=== PATIENT | male | born 1965 | race Caucasian/White ===

== ENCOUNTER 2023-04-03 09:17 | Outpatient (CLI) | payer BC, SELFPAY ==
--- NOTE | 2023-04-03 09:15 | CRLHL7_ITS ---
For Patients: As a result of the Century Cures Act, medical imaging exams and procedure reports are released immediately into your electronic medical record. You may view this report before your referring provider. If you have questions, please contact your health care provider. Indication: Left wrist pain Procedure : Informed consent was obtained. The site was marked. Time-out was performed. The skin of the left wrist was cleansed with ChloraPrep. A sterile drape was placed. 2 cc of 1 percent lidocaine was administered for superficial anesthesia. Subsequently a 25 gauge needle was introduced into the left wrist radiocarpal joint under intermittent fluoroscopic guidance. Injection of 0.5 cc nonionic Omnipaque 240 contrast confirmed intra-articular location. Subsequently 3 cc of dilute gadolinium was injected. The needle was removed and hemostasis achieved with direct pressure. A dressing was placed. The patient tolerated the procedure well without immediate complication and was immediately sent to MRI for imaging. Total fluoroscopy time 78 seconds. Impression: Successful fluoroscopically guided left wrist arthrogram for MRI. Dictated by Roger Raya MD @ 04/03/2023 12:16:46 PM (Electronically Signed)
--- NOTE | 2023-04-03 10:15 | MR_ITS ---
[address] [address] Phone:?[phone] Fax:?[phone] Referring Physician Information: Paul Martinez M.D. [id number] [facility] [address] Phone:?[phone] Fax:?[phone] Patient:?Ravi Edmondson D.O.B:?1965 Sex:?Male Phone:?[phone] [facility] MRN:?[id number] Exam Date:?04/03/2023 EXAM:? MR ARTHROGRAM OF THE LEFT WRIST CLINICAL INFORMATION: The patient is a 58-year-old with left wrist pain. Evaluate TFCC. PRIOR SURGERY: None reported. COMPARISON STUDIES: Comparison is made to prior radiographs dated 03/20/2023. TECHNICAL INFORMATION: This study was performed following the intra-articular administration of a dilute gadolinium solution at [facility] (please see separate report). Imaging was produced on a high-field, 1.5 Mckenzie MR scanner. Coronal gradient echo imaging was produced in addition to coronal fat- suppressed T1 and fat-suppressed proton-density imaging. Axial and sagittal fat- suppressed T1 and fat-suppressed proton-density imaging was also produced. FINDINGS: Osseous structures:? Fat-suppressed imaging of the distal radius and distal ulna shows no evidence for marrow edema or cortical injury. There is no evidence for fracture.? No evidence for acute bony abnormality of the carpal structures can be seen. There is no evidence for carpal fracture or abnormality in carpal alignment. Benign-appearing cystic changes are seen within the distal scaphoid on coronal series 11 image 11.? No definite evidence for injury to the proximal metacarpal region can be seen. Articulations:? Fluid is seen within the radiocarpal joint, midcarpal space, and distal radioulnar joint. There is minimal typical gadolinium signal intensity within this fluid. The findings may relate to incorrect arthrographic injection. No evidence for well-defined erosive change can be seen along the articular surfaces of the radiocarpal joint, midcarpal space, or distal radioulnar joint. No definite abnormalities of the CMC joints can be seen. Triangular fibrocartilage:? A focal tear of the TFCC can be seen near its radial attachment on coronal series 11 images 6 and 7, measuring approximately 3 mm in greatest dimension. Additionally, indistinctness and irregularity of the ulnar aspect of the TFCC can be seen. Ligaments: ?Indistinctness and irregularity of the scapholunate ligament can be seen, in keeping with prior incomplete sprain. No widening of the scapholunate interspace can be seen. The lunotriquetral ligament is within normal limits.? The remainder of the volar and dorsal ligaments appear intact. Musculotendinous structures:? The flexor tendons are intact and normal in appearance.? The extensor tendons are intact and normal in appearance. Neurovascular structures:? The median nerve appears normal in signal intensity and morphology within the carpal tunnel. The ulnar neurovascular structures appear unremarkable. Fluid collections:? No abnormal fluid collections about the wrist are seen. No evidence for ganglion cyst formation is identified. CONCLUSION: ? 1. Fluid is seen within the radiocarpal joint space, midcarpal space, and distal radioulnar joint. Minimal gadolinium signal can be seen and the findings may relate to incorrect arthrographic administration. 2. Focal tear of the TFCC near its radial attachment with additional indistinctness and irregularity of the ulnar aspect. 3. No acute bony injuries are identified. 4. No definite tendon injuries are noted. 5. No neurovascular abnormalities are seen. 6. No definite ganglion cyst formation is noted. [facility] Electronically signed on 04/06/2023 8:11:00 AM by Naman Winters M.D.
== END 2023-04-03 09:18 | disposition home or self-care (01) ==
PROVIDERS: PCP Family Medicine; Visit Provider Orthopaedic Surgery Sports Medicine
DX: M25.532 Pain in left wrist (principal); S69.82XA Other specified injuries of left wrist, hand and finger(s), initial encounter
CPT/HCPCS: 25246; 73222; 77002; A9575; Q9967

== ENCOUNTER 2024-04-22 08:31 | Day surgery (SDC) | payer BC, SELFPAY ==
[2024-04-22] VITALS (12 sets, daily range): BP systolic 108–169; BP diastolic 61–98; PULSE 56–82; RESP 14–18; TEMP 36.3–37.2; O2SAT 94–98; BMI 27.4
[2024-04-22] MEDS: SODIUM CHLORIDE 0.9 % (FLUSH) 10 ML SYRINGE IVF (08:55)
--- NOTE | 2024-04-22 09:21 | W.PM.H&PU ---
History & Physical Update History & Physical Update H&P Reviewed and patient assessed: No changes noted
[2024-04-22] MEDS: ROPIVACAINE 0.5% 30 ML 150 MG INJECTION (10:43)
[2024-04-22] MEDS: CEFAZOLIN 2 GM in 0.9 % SODIUM CHLORIDE Mini-bag 100 ML IVPB (11:05)
--- NOTE | 2024-04-22 11:56 | W.ANESCHARGE ---
Anesthesia Charges Start Date/Time Anesthesia Start Date: 04/22/24 Anesthesia Start Time: 10:55 Stop Date/Time Anesthesia Stop Date: 04/22/24 Anesthesia Stop Time: 11:59
--- NOTE | 2024-04-22 11:59 | W.ANESCHARGE ---
Anesthesia Charges Start Date/Time Anesthesia Start Date: 04/22/24 Anesthesia Start Time: 10:55 Stop Date/Time Anesthesia Stop Date: 04/22/24 Anesthesia Stop Time: 11:59
--- NOTE | 2024-04-22 12:14 | P.ORPRC_ITS ---
Procedure Note Date of procedure: 04/22/24 Procedure: PREOPERATIVE DIAGNOSIS: 1. Left knee medial meniscus tear POSTOPERATIVE DIAGNOSIS: 1. Left knee medial meniscus tear PROCEDURE: 1. Left knee arthroscopic partial medial meniscectomy SURGEON: Paul Martinez M.D. TECHNICAL DOCUMENTATION SPECIALIST: Shelbie Pinzon PA-C. Of note, an administrative assistant receptionist was critical for this case to aid in patient positioning, knee manipulation, instrument exchange, and closure. ANESTHESIA: Spinal EBL: 2ml TOURNIQUET: 25 minutes at 250 torr COMPLICATIONS: None evident INDICATIONS: The patient is a pleasant 59-year-old male who has experienced left knee pain particularly with any twisting or turning. Physical exam was concerning for medial meniscus tear, this was confirmed on MRI. Additionally, attempted nonoperative management has been tried, and failed. Thus, surgery was recommended. FINDINGS: Complex tearing posterior horn approaching midbody medial meniscus. Intact lateral meniscus. ACL and PCL intact and robust. 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 Grade 4 chondromalacia trochlear groove in a region measuring 8 by 22 mm (M-L x A-P, respectively). DESCRIPTION OF PROCEDURE: After a thorough discussion of risks, benefits, and alternatives, the patient was brought to the operating room and placed upon the operating table. Induction of anesthesia was undertaken as previously noted. 2g iv Ancef was administered within 1 hr of incision preoperatively. Appropriate time-out was performed identifying proper patient, site, and procedure. The left lower extremity was prepped and draped in the appropriate sterile fashion using ChloraPrep. The limb was exsanguinated and tourniquet inflated. Anterolateral and anteromedial portals were established with an 11 blade, and a diagnostic arthroscopy was performed. This identified the findings as noted above. Following the diagnostic arthroscopy, a partial medial menisectomy was performed with the combination of basket forceps, [place] cautery, and a motorized shaver. Following this, the meniscus was re-probed and found to be stable. Approximately 20-25% of the overall meniscus required resection. At this stage, the shaver was reinserted into the suprapatellar pouch and all remaining meniscal debris was evacuated. Instruments were removed, excess fluid was drained, and closure performed with 4-0 Monocryl with Steri-Strips. Dressin gs were applied, the tourniquet deflated, and the patient was awoken from anesthesia and transferred to the PACU in stable condition. PLAN: 1. Weightbear as tolerated operative extremity. Crutch / walker ambulation assistance PRN. Straight leg raise to be initiated starting tomorrow by the patient. 2. Ice, acetominophen and/or ibuprofen, and Oxycodone for pain as needed. 3. Knee range of motion and quad sets/straight leg raise regularly 4. Follow up with PA visit in 7-10 days. for a wound check. Initiate physical therapy at that time
--- NOTE | 2024-04-22 12:26 | SUR.PHASEI ---
patient met discharge criteria per anesthesia
== END 2024-04-22 13:24 | disposition home or self-care (01) ==
LOC: OR 08:32
PROVIDERS: PCP Family Medicine; Visit Provider Orthopaedic Surgery Sports Medicine
PROC: (CPT 29870; principal; 2024-04-22 10:00)
DX: S83.232A Complex tear of medial meniscus, current injury, left knee, initial encounter (principal)
CPT/HCPCS: 29881; 01400; J0690; J1885; J2250; J2405; J2704; J2795; J3010